=== PATIENT | male | born 1980 | race Caucasian/White ===

== ENCOUNTER 2021-08-04 09:03 | Emergency (ER) | payer OTHER, SELFPAY ==
[2021-08-04] VITALS (8 sets, daily range): BP systolic 150–157; BP diastolic 83–97; PULSE 61–83; RESP 14–18; TEMP 37.3; O2SAT 94–97; BMI 27.8
--- NOTE | 2021-08-04 09:46 | ED_ITS ---
HPI - GI Bleed General Chief complaint: GI Bleed Stated complaint: High blood pressure,blood in stool Time Seen by Provider: 08/04/21 09:40 Source: patient Mode of arrival: Ambulatory History of Present Illness HPI Narrative: Patient is a 40-year-old male healthy presenting today with ongoing GI bleeding. He says for the last 10 days he has had bright red bloody bowel movements. He says sometimes it is blood streaks sometimes it is just on the toilet paper. He has noted that his blood pressure is slightly elevated as well no prior history of hypertension. [place]. He has minimal abdominal cramping no fever chills or body aches. He has no nausea or vomiting. 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 He does take Voltaren daily for his hip and joint pain. He is quite concerned his dad of metastatic melanoma mom was recently diagnosed breast cancer. He is supposed to be stiff for a few weeks. Related Data Allergies Allergy/AdvReac Type Severity Reaction Status Date / Time No Known Drug Allergies Allergy Verified 08/04/21 09:29 Review of Systems Review of Systems Narrative: GENERAL: Denies chills, fatigue, malaise, fever, sweats, travel HEENT: Denies sinus pain, ear pain, sore throat, difficulty swallowing, neck pain RESPIRATORY: Denies dyspnea, cough, wheezing, hemoptysis, sputum. CARDIOVASCULAR: Denies chest pain, palpitations, orthopnea, edema GASTROINTESTINAL: See HPI : Denies dysuria, frequency, incontinence, hematuria, urinary retention, flank pain. MUSCULOSKELETAL: Denies weakness, joint pain, or bony pain SKIN: No rash, no erythema, no pruritus NEUROLOGIC: Denies weakness, dizziness, headache, numbness, change in speech, confusion PSYCHIATRIC: No concerning psychosocial issues. 12 point review of systems is negative except for those stated above and HPI Patient History Social History Smoking Status: Unknown if ever smoked Smoking Status: Unknown if ever smoked alcohol intake frequency: 0-2 drinks per day Substance Use Type: does not use Exam Initial Vital Signs Initial Vital Signs: Vital Signs Temperature 99.1 F 08/04/21 09:24 Pulse Rate 83 08/04/21 09:24 Respiratory Rate 14 08/04/21 09:24 Blood Pressure 157/97 H 08/04/21 09:24 Pulse Oximetry 96 08/04/21 09:24 GENERAL: Alert well-appearing 40-year-old male and in no acute distress. HEENT: Head atraumatic,EOMI, pupils reactive, face symmetric, moist mucous membranes CARDIOVASCULAR: Regular rate and rhythm without murmurs, rubs or gallops. RESPIRATORY: Breath sounds equal bilaterally, no wheezes rales or rhonchi. ABDOMEN: Soft, nontender. Normoactive bowel sounds all 4 quadrants. No guarding or rebound. RECTAL: no hemorrhoids no stool, no gross blood EXTREMITIES: Normal range of motion, no clubbing or edema. Neurovascularly intact NEUROLOGICAL: Alert and oriented x4.Normal gait and speech. SKIN: Warm, dry, no laceration, no petechiae, no rashes or lesions. Course Orders Ordered: ED Orders 08/04/21 10:07 GI Panel (Film Array) Stat 08/04/21 12:38 CT abdomen pelvis w con Stat Discontinued Medications Pantoprazole Sodium (Pantoprazole 40 Mg Vial) 40 mg IV NOW ONE Stop: 08/04/21 09:56 Last Admin: 08/04/21 10:15 Dose: 40 mg Documented by: BTONER Vital Signs Vital signs: Vital Signs - 8 hr 08/04/21 11:00 08/04/21 11:30 08/04/21 12:00 Pulse Rate 61 79 79 Respiratory Rate Blood Pressure Pulse Oximetry 95 96 96 08/04/21 12:30 08/04/21 13:20 Pulse Rate 83 83 Respiratory Rate 18 Blood Pressure 150/83 H Pulse Oximetry 96 97 MDM - GI Bleed Lab Data Result diagrams: 08/04/21 09:40 08/04/21 09:40 Labs: Lab Results 08/04/21 08/04/21 08/04/21 Range/Units 09:40 09:40 09:40 WBC 4.0 L (4.5-11.0) X10^3/uL RBC 4.82 (4.5-5.9) X10^6/uL Hgb 15.4 (13.5-17.5) g/dL Hct 44.5 (41-53) % MCV 92.3 (80-100) fL MCH 31.9 (26-34) PG MCHC 34.6 (30-36) % RDW 13.1 (11.6-14.8) % Plt Count 192 (150-400) X10^3/uL Neut % (Auto) 53.9 (50-75) % Lymph % (Auto) 27.8 (25-40) % [place] % (Auto) 10.1 (3-14) % Eos % (Auto) 7.2 H (2-4) % Baso % (Auto) 1.0 (0-2) % Neut # (Auto) 2200 (2319-5247) /uL Lymph # (Auto) 1100 (1672-3449) /uL [place] # (Auto) 400 (0-900) /uL Eos # (Auto) 300 (0-450) /uL Baso # (Auto) 0 (0-100) /uL PT 11.5 (10.1-12.7) SECONDS INR 1.0 (0.9-1.3) APTT 36 (26.4-36.2) SECONDS Sodium 140 (137-145) mmol/L Potassium 4.1 (3.4-5.1) mmol/L Chloride 108 H (98-107) mmol/L Carbon Dioxide 27 (22-32) mmol/L BUN 19 (9-20) mg/dL Creatinine 1.01 (0.66-1.25) mg/dL Estimated GFR > 60.0 (>60) mL/min BUN/Creatinine Ratio 18.8 (6-22) Glucose 93 (70-100) mg/dL Calcium 9.4 (8.4-10.2) mg/dL Total Bilirubin 1.0 (0.2-1.3) mg/dL AST 33 (17-59) IU/L ALT 40 (<50) IU/L Alkaline Phosphatase 70 (38-126) U/L Total Protein 7.5 (6.3-8.2) g/dL Albumin 4.6 (3.5-5.0) g/dL Globulin 2.9 (1.7-4.1) g/dL Albumin/Globulin Ratio 1.6 (1.0-2.8) Stl C. cayetanensis PCR (Not Detect) Stool Rotavirus (PCR) (Not Detect) Stool Adenovirus (PCR) (Not Detect) Stool Astrovirus (PCR) (Not Detect) Stool Cryptosporidium PCR (Not Detect) Stl E.coli Shiga Tox PCR (Not Detect) St Sh/Enteroin Ecoli PCR (Not Detect) Stool E coli O157 PCR (Not Detect) Stl Enterotoxigenic E PCR (Not Detect) Stool EPEC (PCR) (Not Detect) Stl E. histolytica PCR (Not Detect) Stool Giardia Lamblia PCR (Not Detect) Stool Sapovirus (PCR) (Not Detect) Stl P. shigelloides PCR (Not Detect) St Y.enterocolitica PCR (Not Detect) Stool Vibrio (PCR) (Not Detect) Stl Vibrio cholerae PCR (Not Detect) Stl Enteroaggr Ecoli PCR (Not Detect) Stl Norovirus GI/GII PCR (Not Detect) Campylobacter (PCR) (Not Detect) C. difficile Tox (PCR) (Not Detect) Salmonella (PCR) (Not Detect) Blood Type Antibody Screen 08/04/21 08/04/21 08/04/21 Range/Units 09:40 09:40 10:07 WBC (4.5-11.0) X10^3/uL RBC (4.5-5.9) X10^6/uL Hgb (13.5-17.5) g/dL Hct (41-53) % MCV (80-100) fL MCH (26-34) PG MCHC (30-36) % RDW (11.6-14.8) % Plt Count (150-400) X10^3/uL Neut % (Auto) (50-75) % Lymph % (Auto) (25-40) % [place] % (Auto) (3-14) % Eos % (Auto) (2-4) % Baso % (Auto) (0-2) % Neut # (Auto) (0984-6897) /uL Lymph # (Auto) (0807-7474) /uL [place] # (Auto) (0-900) /uL Eos # (Auto) (0-450) /uL Baso # (Auto) (0-100) /uL PT (10.1-12.7) SECONDS INR (0.9-1.3) APTT Cancelled (26.4-36.2) SECONDS Sodium (137-145) mmol/L Potassium (3.4-5.1) mmol/L Chloride (98-107) mmol/L Carbon Dioxide (22-32) mmol/L BUN (9-20) mg/dL Creatinine (0.66-1.25) mg/dL Estimated GFR (>60) mL/min BUN/Creatinine Ratio (6-22) Glucose (70-100) mg/dL Calcium (8.4-10.2) mg/dL Total Bilirubin (0.2-1.3) mg/dL AST (17-59) IU/L ALT (<50) IU/L Alkaline Phosphatase (38-126) U/L Total Protein (6.3-8.2) g/dL Albumin (3.5-5.0) g/dL Globulin (1.7-4.1) g/dL Albumin/Globulin Ratio (1.0-2.8) Stl C. cayetanensis PCR Not detected (Not Detect) Stool Rotavirus (PCR) Not detected (Not Detect) Stool Adenovirus (PCR) Not detected (Not Detect) Stool Astrovirus (PCR) Not detected (Not Detect) Stool Cryptosporidium PCR Not detected (Not Detect) Stl E.coli Shiga Tox PCR Not detected (Not Detect) St Sh/Enteroin Ecoli PCR Not detected (Not Detect) Stool E coli O157 PCR Not detected (Not Detect) Stl Enterotoxigenic E PCR Not detected (Not Detect) Stool EPEC (PCR) Not detected (Not Detect) Stl E. histolytica PCR Not detected (Not Detect) Stool Giardia Lamblia PCR Not detected (Not Detect) Stool Sapovirus (PCR) Not detected (Not Detect) Stl P. shigelloides PCR Not detected (Not Detect) St Y.enterocolitica PCR Not detected (Not Detect) Stool Vibrio (PCR) Not detected (Not Detect) Stl Vibrio cholerae PCR Not detected (Not Detect) Stl Enteroaggr Ecoli PCR Not detected (Not Detect) Stl Norovirus GI/GII PCR Not detected (Not Detect) Campylobacter (PCR) Not detected (Not Detect) C. difficile Tox (PCR) Not detected (Not Detect) Salmonella (PCR) Not detected (Not Detect) Blood Type O Positive Antibody Screen Negative Point of Care Testing Stool Occult Blood Positive Urine Dip Bedside Urine Glucose Negative Bedside Urine Bilirubin - Negative Bedside Urine Ketone + 15 Urine Specific [place] 1.025 Bedside Urine Occult Blood - Negative Bedside Urine pH 6.0 Bedside Urine Protein - Negative Bedside Urine Urobilinogen - Negative Bedside Urine Nitrite - Negative Bedside Urine Leukocytes - Negative Esterase Imaging Data CT scan - abdomen/pelvis: Radiologist's Impression: PROCEDURE:? CT ABDOMEN PELVIS W CON ? INDICATIONS:? gi bleeding ? TECHNIQUE:? After the administration of IV contrast, axial sections were acquired from the lung bases to the pubic symphysis.? Coronal and sagittal reformats were performed.? For radiation dose reduction, the following was used:? automated exposure control, adjustment of mA and/or kV according to patient size. ? COMPARISON:? None. ? FINDINGS:? Image quality:? Excellent.? ? Lung bases:? Unremarkable.? ? Heart:? No significant findings. ? ? ABDOMEN: Liver:? Unremarkable.? ? Gallbladder:? Unremarkable.? ? Biliary ducts:? Unremarkable.? ? Pancreas:? Unremarkable.? ? Spleen:? Unremarkable.? ? Adrenal Glands:? Unremarkable.? ? Kidneys and Ureters:? Unremarkable.? ? ? Stomach and Bowel:? There is mild distal colonic wall thickening at the rectosigmoid junction.? Stomach, small bowel loops, and colon are normal in caliber.? Appendix is normal.? Peritoneum:? No abnormal intraperitoneal fluid.? No free air.? ? Ventral Wall: ? No hernia.? Abdominal Nodes:? No retroperitoneal or mesenteric adenopathy by size criteria.? Vessels:? Aorta and inferior vena cava are normal in size.? ? PELVIS: Pelvic Organs:? Unremarkable.? ? Bladder:? Unremarkable.? ? Pelvic Nodes: No enlarged lymph nodes.? Miscellaneous:? Small fat containing inguinal hernias are seen. ? ? ? Bones:? Unremarkable.? IMPRESSION:? ? 1.? Mild distal colonic wall thickening at the rectosigmoid junction consistent with mild colitis.? Differential diagnosis include infection versus inflammatory bowel disease.? Recommend clinical correlation. ? Dictated by: Dev Snowden M.D. on 08/04/2021 at 12:53 ? ? ECG Data Interpretation: Normal sinus rhythm rate 73 MD interval 156 QRS [address] changes or T- wave inversions mild artifact noted MDM Narrative Medical decision making narrative: Patient has intermittent bloody stools guaiac negative blood work is overall very reassuring without signs of anemia especially after 7-10 days of intermittent bloody stools. He has some mild cramping CT does show mild colitis. [id number] discussed case with Dr. Smalls, who states that he probably would not get a colonoscopy if he stayed in the hospital. Recommends that [place], and have outpatient follow up Discharge Plan Departure Patient Disposition: Home Clinical Impression: Colitis Instructions: DI for Colitis Activity Restrictions/Additional Instructions: *You have been diagnosed with colitis *What to do: This is probably inflammatory such as Crohn's disease or ulcerative colitis however you will need a colonoscopy. Please monitor your blood pressure. Check once daily. If this continues to be elevated you may need blood pressure medication. *Continue to take medications as directed Tylenol 1000 mg every 6 hours if needed for pain *Follow up with your primary care provider in 2-3 days or call [phone] *Return to ER if you should have increasing bloody stools, blood pressure elevated 190/100, chest pain, shortness of breath, increasing abdominal pain, fever or any new, worsening or concerning symptoms
[2021-08-04 10:04] LABS: Add Manual Diff / Slide Review NO; Basophils Absolute Auto 0 /uL (0-100); Eosinophils Absolute Auto 300 /uL (0-450); Eosinophils Percent Auto 7.2 % (2-4); Hematocrit 44.5 % (41-53); Hemoglobin 15.4 g/dL (13.5-17.5); Lymphocytes Absolute Auto 1100 /uL (1100-4500); Lymphocytes Percent Auto 27.8 % (25-40); Mean Corpuscular HGB Conc 34.6 % (30-36); Mean Corpuscular Hemoglobin 31.9 PG (26-34); Mean Corpuscular Volume 92.3 fL (80-100); Monocytes Absolute Auto 400 /uL (0-900); Monocytes Percent Auto 10.1 % (3-14); Neutrophils Absolute Auto 2200 /uL (1500-7000); Neutrophils Percent Auto 53.9 % (50-75); Platelet Count 192 X10^3/uL (150-400); Red Blood Cell Count 4.82 X10^6/uL (4.5-5.9); Red Cell Distribution Width 13.1 % (11.6-14.8)
[2021-08-04 10:11] LABS: Prothrombin Time 11.5 SECONDS (10.1-12.7)
[2021-08-04 10:13] LABS: PTT Partial Thromboplastin Tim 36 SECONDS (26.4-36.2)
[2021-08-04] MEDS: PANTOPRAZOLE 40 MG VIAL IV (10:15)
[2021-08-04 10:17] LABS: Alanine Aminotransferase 40 IU/L (<50); Albumin 4.6 g/dL (3.5-5.0); Albumin Globulin Ratio 1.6 (1.0-2.8); Alkaline Phosphatase 70 U/L (38-126); Aspartate Aminotransferase 33 IU/L (17-59); BUN Creatinine Ratio 18.8 (6-22); Blood Urea Nitrogen 19 mg/dL (9-20); Calcium 9.4 mg/dL (8.4-10.2); Carbon Dioxide 27 mmol/L (22-32); Chloride 108 mmol/L (98-107); Estimated Glomerular Filt Rate > 60.0 mL/min (>60); Globulin 2.9 g/dL (1.7-4.1); Glucose 93 mg/dL (70-100); HEMOLYSIS < 15 (0-50); Potassium 4.1 mmol/L (3.4-5.1); Sodium 140 mmol/L (137-145); Total Protein 7.5 g/dL (6.3-8.2)
[2021-08-04 11:58] LABS: Campylobacter Not Detected (Not Detect); Clostridium difficile toxin AB Not Detected (Not Detect); Enteroaggregative E.coli Not Detected (Not Detect); Enteropathogenic E.coli Not Detected (Not Detect); Enterotoxigenic E.coli It/st Not Detected (Not Detect); Plesiomonsa shigelloides Not Detected (Not Detect); Salmonella Not Detected (Not Detect); Vibrio Not Detected (Not Detect); Vibrio cholerae Not Detected (Not Detect); Yersinia enterocolitica Not Detected (Not Detect)
[2021-08-04 11:59] LABS: Adenovirus F 40/41 Not Detected (Not Detect); Astrovirus Not Detected (Not Detect); Cryptosporidium Not Detected (Not Detect); Cyclospora cayetanensis Not Detected (Not Detect); Entamoeba histolytica Not Detected (Not Detect); Giardia lamblia Not Detected (Not Detect); Norovirus GI/GII Not Detected (Not Detect); Rotavirus A Not Detected (Not Detect); Sapovirus Not Detected (Not Detect); Shiga-like toxin-prod E.coli Not Detected (Not Detect); Shigella/Enteroinvasive E.coli Not Detected (Not Detect)
--- NOTE | 2021-08-04 12:38 | DI.CT.S_ITS ---
PROCEDURE: CT ABDOMEN PELVIS W CON INDICATIONS: gi bleeding TECHNIQUE: After the administration of IV contrast, axial sections were acquired from the lung bases to the pubic symphysis. Coronal and sagittal reformats were performed. For radiation dose reduction, the following was used: automated exposure control, adjustment of mA and/or kV according to patient size. COMPARISON: None. FINDINGS: Image quality: Excellent. Lung bases: Unremarkable. Heart: No significant findings. ABDOMEN: Liver: Unremarkable. Gallbladder: Unremarkable. Biliary ducts: Unremarkable. Pancreas: Unremarkable. Spleen: Unremarkable. Adrenal Glands: Unremarkable. Kidneys and Ureters: Unremarkable. Stomach and Bowel: There is mild distal colonic wall thickening at the rectosigmoid junction. Stomach, small bowel loops, and colon are normal in caliber. Appendix is normal. Peritoneum: No abnormal intraperitoneal fluid. No free air. Ventral Wall: No hernia. Abdominal Nodes: No retroperitoneal or mesenteric adenopathy by size criteria. Vessels: Aorta and inferior vena cava are normal in size. PELVIS: Pelvic Organs: Unremarkable. Bladder: Unremarkable. Pelvic Nodes: No enlarged lymph nodes. Miscellaneous: Small fat containing inguinal hernias are seen. Bones: Unremarkable. IMPRESSION: 1. Mild distal colonic wall thickening at the rectosigmoid junction consistent with mild colitis. Differential diagnosis include infection versus inflammatory bowel disease. Recommend clinical correlation. Dictated by: Dev Snowden M.D. on 08/04/2021 at 12:53 Approved by: Dev Snowden M.D. on 08/04/2021 at 13:13
--- NOTE | 2021-08-04 13:43 | PC.NURSE ---
per dr stoner
== END 2021-08-04 13:59 | disposition home or self-care (01) ==
PROVIDERS: Emergency Provider Emergency Medicine
DX: K52.9 Noninfective gastroenteritis and colitis, unspecified (principal); R03.0 Elevated blood-pressure reading, without diagnosis of hypertension; Y99.0 Civilian activity done for income or pay
CPT/HCPCS: 36415; 74177; 80053; 81003; 82272; 85025; 85610; 85730; 86850; 86900; 86901; 87507; 93005; 96374; 99284; C9113